=== PATIENT | male | born 1990 | race Caucasian/White ===

== ENCOUNTER 2018-08-21 04:53 | Emergency (ER) | payer MEDICAID ==
[~2018-08-21] VITALS: Ht 172.7 cm; Wt 79.0 kg
[2018-08-21] MEDS ORDERED: METOCLOPRAMIDE HCL 10MG/2ML VIAL IM ONE (07:00)
[2018-08-21] MEDS ORDERED: DIPHENHYDRAMINE 50MG/ML VIAL IM ONE (07:00)
[2018-08-21 09:00] VITALS: BP 125/79
== END 2018-08-21 09:25 | disposition home or self-care (01) ==
LOC: ER 04:53
DX: R51 Headache (principal); R42 Dizziness and giddiness; R11.0 Nausea; F12.10 Cannabis abuse, uncomplicated
CPT/HCPCS: 70450; 96372; 99284; J1200; J2765

== ENCOUNTER 2021-07-16 17:15 | Emergency (ER) | payer MEDICAID ==
[~2021-07-16] VITALS: Ht 172.7 cm; Wt 86.0 kg
[2021-07-16 17:43] VITALS: BP 150/85
[2021-07-16] MEDS ORDERED: KETOROLAC 30MG/ML VIAL IM ONE (18:00)
== END 2021-07-16 23:15 | disposition home or self-care (01) ==
LOC: ER 17:15
DX: N50.811 Right testicular pain (principal); R10.31 Right lower quadrant pain; F12.10 Cannabis abuse, uncomplicated
CPT/HCPCS: 76870; 82962; 93976; 99284; A4565